=== PATIENT | female | born 1945 | race Caucasian/White ===

== ENCOUNTER 2019-03-30 20:18 | Observation (INO) ==
--- NOTE | 2019-03-30 20:27 | Emergency Department Note ---
Disposition Clinical Impression: Chest pain Qualifiers: Chest pain type: unspecified Qualified Code(s): R07.9 - Chest pain, unspecified Disposition: Admitted As Inpatient Condition: Undetermined Referrals: Darrel Avilez DO [Partnered Physician] - Forms: ED Satisfaction Letter Time of Disposition: 22:09 Chest Pain HPI - General Chief Complaint: ED Chest Pain Stated Complaint: chest pain Time Seen by Provider: 03/30/19 20:21 Source: patient, EMS Mode of arrival: EMS Limitations: no limitations Vital Signs Reviewed: Yes Nursing Notes Reviewed: Yes - History of Present Illness HPI Narrative: Patient is a 73 year old female with past medical history including hypertension, prior myocardial infarction status post 2 stent placements on Plavix, COPD, presenting with chief complaint of chest pain that started at 7 PM this evening. The patient states in the afternoon, she was mowing her lawn and felt very hot. She states after she just overall did not feel well. Around 7 PM, she states she was sitting going through receipts when she suddenly developed bilateral chest pain which he describes as severe pressure radiating into her back. She took one nitroglycerin without resolving. She took a second 5 minutes later and states the pain lasted a total of 7 minutes. She complains of some shortness of breath and nausea with the pain. She is chest pain-free at this time. She states this pain feels very similar to the pain she fell 2 years ago when she had her VT. She denies history of aneurysms. Severity scale (1-10): 0 - Related Data Home Medications Medication Instructions Recorded Confirmed Aspirin 81 mg PO QAM 07/12/15 10/19/18 Atorvastatin [Lipitor] 40 mg PO QAM 07/12/15 10/19/18 Solifenacin Succinate [Vesicare] 10 mg PO DAILY 03/30/19 03/30/19 Previous Rx's Medication Instructions Recorded Clopidogrel [Plavix] 75 mg PO DAILY #60 tablet 07/14/15 Metoprolol XL (24 HR) Succ [Toprol 25 mg PO DAILY #30 tab.er.24h 07/14/15 XL] Nitroglycerin 0.4 mg SL Q5MIN PRN #30 tab.subl 07/14/15 Allergies Allergy/AdvReac Type Severity Reaction Status Date / Time Sulfa (Sulfonamide AdvReac Severe severe Verified 02/16/18 07:02 Antibiotics) vomiting ivp dye Allergy Rash Uncoded 02/16/18 07:02 All systems ED: reviewed and negative except as stated. Review of Systems: As Per HPI Constitutional: Denies: fever, chills Cardiovascular: Reports: chest pain. Denies: palpitations Respiratory: Reports: dyspnea. Denies: cough Gastrointestinal: Reports: nausea. Denies: abdominal pain, vomiting Genitourinary: Denies: dysuria, hematuria Musculoskeletal: Reports: back pain Chest Pain PMH - Past Medical History Medical history: Reports: cancer, GERD, glaucoma, hyperlipidemia, hypertension, myocardial infarction, other Surgical history: Reports: appendectomy, other Psychiatric history: Reports: no psych history TURBINE ROOM ATTENDANT history: Reports: no TURBINE ROOM ATTENDANT history - Social History Smoking Status: Former smoker Alcohol use: Reports: none Drug use: Reports: none Physical Exam - General Limitations: no limitations General appearance: alert, in no apparent distress - Head Head exam: atraumatic, normocephalic - Eye Eye exam: Present: normal appearance, EOMI - ENT ENT exam: normal exam, mucous membranes moist - Neck Neck exam: Present: normal inspection, trachea midline - Chest Chest inspection: Present: normal inspection, symmetric chest wall rise - Respiratory Respiratory exam: Present: normal lung sounds bilaterally. Absent: respiratory distress, wheezes - Cardiovascular Cardiovascular exam: Present: regular rate, normal rhythm, normal heart sounds, other (bilateral radial pulses equal and palpable) - Abdominal Exam Abdominal exam: Present: soft, Non-Tender. Absent: distention - Extremities Exam Extremities exam: Present: normal capillary refill. Absent: pedal edema, calf tenderness - Back Exam Back exam: Present: normal inspection. Absent: tenderness - Neurological Exam Neurological exam: Present: alert, oriented X3 - Psychiatric Psychiatric exam: Present: normal affect, normal mood - Skin Skin exam: Present: warm, dry. Absent: diaphoresis, pallor Course Vital Signs Temperature 98.7 F 03/30/19 20:21 Pulse Rate 87 03/30/19 20:21 Respiratory Rate 18 03/30/19 20:21 Blood Pressure 117/87 03/30/19 20:21 O2 Sat by Pulse Oximetry 95 03/30/19 20:21 Temperature 98.7 F 03/30/19 20:21 Pulse Rate 86 03/30/19 21:55 Respiratory Rate 18 03/30/19 21:55 Blood Pressure 95/63 05/22/19 21:55 O2 Sat by Pulse Oximetry 96 03/30/19 21:55 Oxygen Delivery Oxygen Delivery Room Air Chest Pain - MDM Narrative Medical decision making narrative: Patient is presenting with chest pain that lasted for 7 minutes and similar to the chest pain she had 2 years ago prior to her heart attack. She has 2 stent placements and is on Plavix. She states she is chest pain-free at this time. Vitals are stable. She is nontoxic-appearing and not in acute distress. She received 2 sublingual nitroglycerin at home. We will obtain ACS workup and check troponin CBC and BMP, chest x-ray. EKG was obtained that shows sinus rhythm without acute ischemic changes. An aspirin will also be given. 21:10 Troponin is less than 0.03. CXR shows no acute cardiopulmonary process. She remains chest pain free at this time. The patient will be admitted for further evaluation of chest pain and ACS workup. Hospitalist paged for admission. 22:00 Discussed with Hospitalist, Dr. Jacobsen, who accepts admission. - Medical Records Medical records reviewed: Yes I reviewed the patient's medical records. - Lab Data Lab results reviewed: Yes I reviewed the patient's lab results. Result diagrams: 03/30/19 20:33 03/30/19 20:33 Lab Results 03/30/19 03/30/19 03/30/19 Range/Units 20:33 20:33 20:33 WBC 10.5 (4.3-11.1) K/mcL RBC 5.01 H (3.82-4.97) M/mcL Hgb 14.8 (11.5-15.4) g/dL Hct 43.5 (35.3-44.9) % MCV 86.8 (83.0-100.0) fL MCH 29.5 (28.0-33.3) pg MCHC 34.0 (31.6-35.5) g/dL RDW 12.5 (11.5-14.5) % Plt Count 253 (140-400) K/mcL MPV 10.5 (9.4-12.4) fL Immature Gran % 0.4 (0-4) % Seg Neutrophils % 60.3 % Lymphocytes % 26.9 % Monocytes % 10.5 % Eosinophils % 1.2 % Basophils % 0.7 % Neutrophils # 6.3 (1.6-8.9) K/mcL Lymphocytes # 2.8 (0.6-4.6) K/mcL Monocytes # 1.1 (0.0-1.3) K/mcL Eosinophils # 0.1 (0.0-0.6) K/mcL Basophils # 0.1 (0.0-0.2) K/mcL PT 11.3 (9.4-12.1) Seconds INR 1.0 APTT 27.8 (26.0-36.0) Seconds Sodium 140 (136-145) mEq/L Potassium 3.5 (3.5-5.1) mEq/L Chloride 103 (98-107) mEq/L Carbon Dioxide 24 (23-29) mEq/L BUN 31 H (8-23) mg/dL Creatinine 1.09 (0.60-1.20) mg/dL Est GFR ( Amer) 60 (> 60) Est GFR (Non-Af Amer) 49 L (> 60) BUN/Creatinine Ratio 28 H (6-26) Glucose 140 H (70-105) mg/dL Calculated Osmolality 299 (280-300) Calcium 10.5 H (8.6-10.3) mg/dL Troponin I < 0.03 (< 0.04) ng/mL - Radiology Data Radiology results reviewed: Yes I reviewed the patient's radiology results. Chest X-Ray 03/30/19 20:22 IMPRESSION: No acute findings. D/ / David Benito MD / David Benito MD Interpreting Provider: David Benito MD - EKG Data EKG attestation: Yes I reviewed and interpreted this EKG. EKG results narrative: EKG obtained at 2022 shows sinus rhythm with heart rate 94, GA interval 192, QTC 421, no ST elevation or depression. Minimal T-wave inversion in lead 3. Compared to old EKG on 10/19/2018 which at that time showed T-wave inversion in lead 3, no acute changes.
[2019-03-30 20:47] LABS: Basophils # 0.1 K/mcL (0.0-0.2); Basophils % 0.7 %; Eosinophils # 0.1 K/mcL (0.0-0.6); Eosinophils % 1.2 %; Hematocrit 43.5 % (35.3-44.9); Hemoglobin 14.8 g/dL (11.5-15.4); Immature Granulocytes % 0.4 % (0-4); Lymphocytes # 2.8 K/mcL (0.6-4.6); Lymphocytes % 26.9 %; Mean Corpuscular Hemoglobin 29.5 pg (28.0-33.3); Mean Corpuscular Volume 86.8 fL (83.0-100.0); Mean Platelet Volume 10.5 fL (9.4-12.4); Monocytes # 1.1 K/mcL (0.0-1.3); Monocytes % 10.5 %; Neutrophils # 6.3 K/mcL (1.6-8.9); Platelet Count 253 K/mcL (140-400); Red Blood Count 5.01 M/mcL (3.82-4.97); Red Cell Distribution Width 12.5 % (11.5-14.5); Segmented Neutrophils % 60.3 %
[2019-03-30 20:52] LABS: Prothrombin Time 11.3 Seconds (9.4-12.1)
[2019-03-30] MEDS ORDERED: Aspirin 81 MG TAB.CHEW PO STA (20:52)
[2019-03-30 20:55] LABS: Activated Partial Thrombo Time 27.8 Seconds (26.0-36.0)
[2019-03-30 21:07] LABS: BUN/Creatinine Ratio 28 (6-26); Blood Urea Nitrogen 31 mg/dL (8-23); Calcium 10.5 mg/dL (8.6-10.3); Carbon Dioxide 24 mEq/L (23-29); Chloride 103 mEq/L (98-107); Glucose 140 mg/dL (70-105); Osmolality,Calculated 299 (280-300); Potassium 3.5 mEq/L (3.5-5.1); Sodium 140 mEq/L (136-145); eGFR For Non-African Americans 49 (> 60)
[2019-03-30 21:08] LABS: Troponin I < 0.03 ng/mL (< 0.04)
--- NOTE | 2019-03-30 21:16 | Emergency Department Note ---
Disposition Clinical Impression: Chest pain Qualifiers: Chest pain type: unspecified Qualified Code(s): R07.9 - Chest pain, unspecified Disposition: Admitted As Inpatient Condition: Good Time of Disposition: 22:30 General Adult HPI - General Chief complaint: ED Chest Pain Stated complaint: chest pain Time Seen by Provider: 03/30/19 20:21 Source: patient, EMS Mode of arrival: EMS Limitations: no limitations - History of Present Illness Pain Scale: 0 - Related Data Home Medications Medication Instructions Recorded Confirmed Aspirin 81 mg PO QAM 07/12/15 03/30/19 Atorvastatin [Lipitor] 40 mg PO QAM 07/12/15 03/30/19 Solifenacin Succinate [Vesicare] 10 mg PO DAILY 03/30/19 03/30/19 Previous Rx's Medication Instructions Recorded Clopidogrel [Plavix] 75 mg PO DAILY #60 tablet 07/14/15 Metoprolol XL (24 HR) Succ [Toprol 25 mg PO DAILY #30 tab.er.24h 07/14/15 XL] Nitroglycerin 0.4 mg SL Q5MIN PRN #30 tab.subl 07/14/15 Allergies Allergy/AdvReac Type Severity Reaction Status Date / Time Sulfa (Sulfonamide AdvReac Severe severe Verified 02/16/18 07:02 Antibiotics) vomiting ivp dye Allergy Rash Uncoded 02/16/18 07:02 Constitutional: Denies: fever, chills Cardiovascular: Reports: chest pain. Denies: palpitations Respiratory: Reports: dyspnea. Denies: cough Gastrointestinal: Reports: nausea. Denies: abdominal pain, vomiting Genitourinary: Denies: dysuria, hematuria Musculoskeletal: Reports: back pain Past Medical History - Past Medical History Medical history: Reports: cancer, GERD, glaucoma, hyperlipidemia, hypertension, myocardial infarction, other Surgical history: Reports: appendectomy, other Psychiatric history: Reports: no psych history TRAFFIC WORKFORCE REPRESENTATIVE history: Reports: no TRAFFIC WORKFORCE REPRESENTATIVE history - Social History Smoking Status: Former smoker Smokeless Tobacco Status: No Alcohol use: Reports: none Drug use: Reports: none Physical Exam - General Limitations: no limitations General appearance: alert, in no apparent distress Course Vital Signs Temperature 98.7 F 03/30/19 20:21 Pulse Rate 87 03/30/19 20:21 Respiratory Rate 18 03/30/19 20:21 Blood Pressure 117/87 03/30/19 20:21 O2 Sat by Pulse Oximetry 95 03/30/19 20:21 Temperature 98.7 F 03/30/19 20:21 Pulse Rate 86 03/30/19 21:55 Respiratory Rate 18 03/30/19 21:55 Blood Pressure 95/63 03/30/19 21:55 O2 Sat by Pulse Oximetry 96 03/30/19 21:55 Oxygen Delivery Oxygen Delivery Room Air Medical Decision Making - Lab Data Result diagrams: 03/30/19 20:33 03/30/19 20:33 Lab Results 03/30/19 03/30/19 03/30/19 Range/Units 20:33 20:33 20:33 WBC 10.5 (4.3-11.1) K/mcL RBC 5.01 H (3.82-4.97) M/mcL Hgb 14.8 (11.5-15.4) g/dL Hct 43.5 (35.3-44.9) % MCV 86.8 (83.0-100.0) fL MCH 29.5 (28.0-33.3) pg MCHC 34.0 (31.6-35.5) g/dL RDW 12.5 (11.5-14.5) % Plt Count 253 (140-400) K/mcL MPV 10.5 (9.4-12.4) fL Immature Gran % 0.4 (0-4) % Seg Neutrophils % 60.3 % Lymphocytes % 26.9 % Monocytes % 10.5 % Eosinophils % 1.2 % Basophils % 0.7 % Neutrophils # 6.3 (1.6-8.9) K/mcL Lymphocytes # 2.8 (0.6-4.6) K/mcL Monocytes # 1.1 (0.0-1.3) K/mcL Eosinophils # 0.1 (0.0-0.6) K/mcL Basophils # 0.1 (0.0-0.2) K/mcL PT 11.3 (9.4-12.1) Seconds INR 1.0 APTT 27.8 (26.0-36.0) Seconds Sodium 140 (136-145) mEq/L Potassium 3.5 (3.5-5.1) mEq/L Chloride 103 (98-107) mEq/L Carbon Dioxide 24 (23-29) mEq/L BUN 31 H (8-23) mg/dL Creatinine 1.09 (0.60-1.20) mg/dL Est GFR ( Amer) 60 (> 60) Est GFR (Non-Af Amer) 49 L (> 60) BUN/Creatinine Ratio 28 H (6-26) Glucose 140 H (70-105) mg/dL Calculated Osmolality 299 (280-300) Calcium 10.5 H (8.6-10.3) mg/dL Troponin I < 0.03 (< 0.04) ng/mL Attestation Statement - Attestation Attestation: I examined this patient and my medical decision-making was reviewed with the Resident Physician. I agree with the documented findings, disposition and treatment plan as described except to the extent set forth below. 73 year old female presents to the eD with complaints of chest pain that occured after mowing the lawn and when she was at rest. She has two known stent and another vessel that is 75% blocked without stents. Anthony otherwise is chest pain free now, with a negative troponin, and non ischemic EKg. Anthony has been given ASA for therapy. Admit to meicine, moderate heart score
[2019-03-30] MEDS ORDERED: Naloxone 0.4 MG/ML INJ IVP PRN (23:03)
[2019-03-30] MEDS ORDERED: Nitroglycerin 0.4 MG TAB.SUBL SL PRN (23:06)
--- NOTE | 2019-03-30 23:19 | Internal Med History&Physical ---
Date of Encounter: 03/30/19 Time of Encounter: 22:15 Internal Medicine - H&P: HPI Chief complaint: CP Admitted From: Emergency Dept Plans for Post Hospital Care: Home History of present illness: Ms. Velazquez is a 73 year old female w/PMH of previous myocardial infarction in 07/2015 with stent placement 2, skin cancer of the face which is resolved, GERD, glaucoma, HLD, HTN, and overactive bladder presents from the ED with chief complaint of chest pain that began at approximately 19:00 this evening after the pt. had cut her grass using a push mower. Pt. reports she became very overheated and stopped. She states she took a bath and while resting, she began having CP that presented as pressure across her chest with radiation to her back, left jaw, and left arm which lasted approximately 20 minutes. Pt. reports taking two SL nitro which relieved her sx. Associated sx: Nausea and diaphoresis. Alleviating factor: SL nitro. Aggravating factor: Exertion. Patient reports pain is similar to her previous IN. Patient states she takes care of her who suffers from rt-sided weakness/paralysis. Pt. reports she is followed by Dr. Gisel Keith for Cardiology. Patient denies recent illness, fever, chills, vomiting, shortness of breath, changes in vision, headache, unusual bleeding, abdominal pain, diarrhea, constipation, chest congestion, cough, dizziness, lightheadedness, numbness, tingling, pre-syncope, or syncope. Past Med Surg Social Fam HX - Past Medical History Source: patient, old records reviewed, obtained from family Medical history: cancer (Skin cancer of the face (Resolved)), GERD, glaucoma, hyperlipidemia, hypertension, myocardial infarction (07/2015 w/stents x2), other Additional medical history: Overactive bladder Psychiatric history: no psych history - Past Surgical History Surgical History: appendectomy, other (Colon surgery) Additional surgical history: laparoscopic signoid colectomy with 39 EEA coloproctostomy (Dr Jimenez) 2012. BCC of face 2010. [facility] with stents 07/2015. PNE 01/2018 - Social History Smoking Status: Former smoker Packs per day: 1-1.5 PPD - Reports quitting in 2012 Smokeless Tobacco Status: No Alcohol use: none Drug use: none Current living situation: Home, With Family Activity Level: Independent ambulation, Very active Recent Out of Country Travel Within the Last 8 Weeks: No Exposure or Possible Exposure to Illness During Travel: No - Family History Mother Adopted: No Race: Family Member Ethnicity: Non- Living Status: Age at : 82 Cause of : IN Hx Family Cardiac Disorders: Yes (IN, CVA, HTN) Hx Family Neurologic Disorders: Yes (CVA) Father Adopted: No Race: Family Member Ethnicity: Non- Living Status: Age at : 47 Cause of : IN Hx Family Cardiac Disorders: Yes (IN @ 47, HLD) Sister Race: Family Member Ethnicity: Non- Living Status: Still Living Hx Family Cardiac Disorders: Yes (Heart murmur) Hx Family Endocrine Disorder: Yes (DM) Brother Race: Family Member Ethnicity: Non- Living Status: Still Living Hx Family GI Disorders: Yes (Diverticulosis) Hx Family Endocrine Disorder: Yes (DM) Daughter Race: Family Member Ethnicity: Non- Living Status: Still Living Hx Family Cardiac Disorders: Yes (HLD, HTN, Heart murmur) Internal Medicine - H&P: Meds Aspirin 81 mg PO QAM 07/12/15 [History] Atorvastatin [Lipitor] 40 mg PO QAM 07/12/15 [History] Clopidogrel [Plavix] 75 mg PO DAILY #60 tablet 07/14/15 [Rx] Metoprolol XL (24 HR) Succ [Toprol XL] 25 mg PO DAILY #30 tab.er.24h 07/14/15 [Rx] Nitroglycerin 0.4 mg SL Q5MIN PRN #30 tab.subl 07/14/15 [Rx] Solifenacin Succinate [Vesicare] 10 mg PO DAILY 03/30/19 [History] Allergy/AdvReac Type Severity Reaction Status Date / Time Sulfa (Sulfonamide AdvReac Severe severe Verified 02/16/18 07:02 Antibiotics) vomiting ivp dye Allergy Rash Uncoded 02/16/18 07:02 All Systems PM: A 10-system review of systems was performed and is negative for pertinent findings except as documented above in the HPI. - Constitutional Constitutional: as per HPI, no chills, no fever(s), no night sweats - EENT Eyes: no change in vision, no discharge, no pain, no photophobia Ears: no ear discharge, no ear pain, no tinnitus Nose, mouth and throat: no dysphagia, no nasal discharge, no neck pain, no sore throat - Breasts Breasts: as per HPI - Cardiovascular Cardiovascular ROS IM: as per HPI, chest pain, no diaphoresis, no dyspnea, no lightheadedness, no palpitations, no syncope - Respiratory Respiratory: as per HPI, no cough, no dyspnea, no wheezing, no excessive phlegm production - Gastrointestinal Gastrointestinal: as per HPI, heartburn, nausea, no abdominal pain, no diarrhea, no hematemesis, no hematochezia, no melena, no vomiting - Genitourinary Genitourinary: as per HPI, urinary frequency, no change in urinary stream, no d ysuria, no flank pain, no hematuria Menstruation: as per HPI - Musculoskeletal Musculoskeletal ROS IM: no numbness, no tingling - Integumentary Integumentary IM: no rash, no unusual bruising - Neurological Neurological ROS: as per HPI, no confusion, no convulsions, no focal weakness, no numbness, no tingling, no tremor(s) - Psychiatric Psychiatric: as per HPI - Endocrine Endocrine IM: as per HPI - Hematologic/Lymphatic Hematologic/Lymphatic: no easy bruising - Allergic/Immunologic Allergic/Immunologic: as per HPI - Constitutional Vitals: Temp Pulse Resp BP Pulse Ox 98.7 F 86 18 95/63 96 03/30/19 20:21 03/30/19 21:55 03/30/19 21:55 03/30/19 21:55 03/30/19 21:55 General appearance: Present: cooperative, A&O X 3, pleasant, no acute distress, obese, answers questions appropriately Exam: Pt. examined at bedside. Pt. resting in bed and reports no current CP, SOB, or nausea. Reports CP earlier felt like previous IN. States SL nitro alleviated her sx. Denies any other sx or complaints on examination. VS: 98.0F temp, HR 86, RR 18, BP 95/63, SPO2 96% on room air. - Head Head exam: Present: atraumatic, normocephalic - Eye Eye exam: Present: PERRL, conjuntiva pink, sclera anicteric Pupils: Present: PERRL - ENT ENT exam: Present: normal exam - Neck Neck exam general surgery: Present: normal inspection, supple, trachea midline. Absent: lymphadenopathy - Respiratory Respiratory exam: Present: CTAB. Absent: accessory muscle use, rales, rhonchi, wheezes - Cardiovascular Cardiovascular exam: Present: RRR, +S1, +S2. Absent: diastolic murmur, gallop, rubs, systolic murmur - GI/Abdominal GI/Abdominal exam: Present: normal bowel sounds, soft, no peritoneal signs. Absent: distended, tenderness - Rectal Rectal exam: Present: deferred - Additional comments: exam deferred. - Extremities Exam Extremities exam: Present: warm, radial pulses palpable and symmetrical. Absent: calf tenderness, cyanotic, pedal edema - Back Exam Back exam: Present: normal inspection - Neurological Exam Neurological exam: Present: alert, CN II-XII intact, oriented X3, no focal deficits. Absent: pronater drift, facial droop, speech deficit - Psychiatric Psychiatric exam: Present: normal affect, normal mood - Skin Skin exam: Present: dry, intact Internal Med - H&P Results - Labs CBC & Chem 7: 03/30/19 20:33 03/30/19 20:33 Labs: Short CBC 03/30/19 Range/Units 20:33 WBC 10.5 (4.3-11.1) K/mcL Hgb 14.8 (11.5-15.4) g/dL Hct 43.5 (35.3-44.9) % Plt Count 253 (140-400) K/mcL Neutrophils # 6.3 (1.6-8.9) K/mcL BMP 03/30/19 20:33 Sodium 140 Potassium 3.5 Chloride 103 Carbon Dioxide 24 BUN 31 H Creatinine 1.09 Glucose 140 H Calcium 10.5 H Cardiac Enzymes 03/30/19 Range/Units 20:33 Troponin I < 0.03 (< 0.04) ng/mL - EKG Data EKG shows normal: sinus rhythm - EKG Data Prior EKG available for review: yes EKG comments: 03/30/19 23:26 EKG dated 10/19/18 shows sinus rhythm. EKG dated 03/30/19 shows sinus rhythm with minimal ST depression in inferior leads. - Impressions ITS Impressions Chest X-Ray 03/30/19 20:22 IMPRESSION: No acute findings. D/ / David Benito MD / David Benito MD Interpreting Provider: David Benito MD - Diagnostic Studies Chest x-ray Additional comments: Impressions Chest X-Ray 03/30/19 20:22 IMPRESSION: No acute findings. D/ / David Benito MD / David Benito MD Interpreting Provider: David Benito MD - Assessment and Plan (1) Chest pain Current Visit: Yes Status: Acute Assessment and plan: Acute CP that began at approximately 19:00 this evening after the pt. had cut her grass using a push mower. Pt. reports she became very overheated and stopped. She states she took a bath and while resting, she began having CP that presented as pressure across her chest with radiation to her back, left jaw, and left arm which lasted approximately 20 minutes. Pt. reports taking two SL nitro which relieved her sx. Pt. states CP is similar to previous IN. Last cardiac w/ u on 11/08/18 w/Echocardiogram that showed LVEF 75% with hyperdynamic LV, normal LV chamber size and wall thickness and systolic function, mild left ventricular diastolic dysfunction, normal right ventricular structure and function, mild tricuspid regurgitation, and no pulmonary hypertension. Nuclear stress test on 11/08/18 showed no ischemia or infarct on perfusion study, normal perfusion study, stress LVEF greater than 70%, pharmacologic stress ECG nondiagnostic for ischemia, and rare PVCs during recovery. Initial troponin <0.03. Trending. ASA. 80 mg Lipitor once. SL nitro PRN. Limited Echocardiogram ordered. Consider Cardiology consult if troponins and/or echocardiogram results abnormal. Pt. is high risk for cardiac event and further morbidity d/t current CP that began at rest, previous IN resulting in stents x2, familial hx of CAD/IN/Father dying of IN @ 47yo, former smoker; and current risk factors of HLD, HTN, and obesity. Observation. Qualifiers: Chest pain type: other chest pain Qualified Code(s): R07.89 - Other chest pain; R07.8 - Other chest pain (2) Nausea Current Visit: Yes Status: Acute Assessment and plan: Acute nausea accompanying CP sx. Phenergan 12.5 mg IVP Q6HR PRN for N/V. IVP Protonix 40 mg daily d/t GERD. (3) CAD (coronary artery disease) Current Visit: Yes Status: Chronic Assessment and plan: Hx of chronic CAD w/previous IN in 2014 and stent placement x2. Hx of HTN, HLD, former smoker (1-1.5 PPD), familial hx of CAD, obesity. ASA daily. Continue pts. HLD and HTN medications. Encourage lifestyle modifications. Continuous cardiac telemetry. Qualifiers: Coronary Disease-Associated Artery/Lesion type: [place] artery [place] vs. transplanted heart: [place] heart Associated angina: angina presence unspecified Qualified Code(s): I25.10 - Atherosclerotic heart disease of [place] coronary artery without angina pectoris (4) HLD (hyperlipidemia) Current Visit: Yes Status: Chronic Assessment and plan: Hx of chronic HLD. Lipid panel in a.m. labs. 80 mg. Lipitor once d/t CP. Continue 40 mg daily tomorrow. Qualifiers: Hyperlipidemia type: pure hypercholesterolemia Qualified Code(s): E78.00 - Pure hypercholesterolemia, unspecified; E78.0 - Pure hypercholesterolemia (5) HTN (hypertension) Current Visit: Yes Status: Chronic Assessment and plan: Hx of chronic HTN. Monitor pt. and VS. Continue pts. Metoprolol when pts. BP improves. Currently hypotensive. Monitor. Qualifiers: Hypertension type: essential hypertension Qualified Code(s): I10 - Essential (primary) hypertension (6) GERD (gastroesophageal reflux disease) Current Visit: Yes Status: Chronic Assessment and plan: Hx of chronic GERD which pt. reports is poorly controlled. 40 mg Protonix IVP daily. Qualifiers: Esophagitis presence: esophagitis presence not specified Qualified Code(s): K21.9 - Gastro-esophageal reflux disease without esophagitis (7) Overactive bladder Current Visit: Yes Status: Chronic Assessment and plan: Hx of chronic overactive bladder. Continue pts. Vesicare. (8) Previous myocardial infarction older than 8 weeks Current Visit: Yes Status: Resolved Assessment and plan: Hx of previous IN in 2014 w/stents x2. Continuous cardiac telemetry. Continue pts. Plavix. ASA daily. Continue pts. HTN and HLD medications. (9) DVT prophylaxis Current Visit: Yes Status: Acute Assessment and plan: Heparin 5,000 units SQ Q8HR for DVT prophylaxis. Monitor pt. for signs of bleeding. - Time Spent With Patient Total time spent is greater than 50% in coordination of care (as documented) at patient's floor/unit and/or counseling patient: Greater than 35 minutes
[2019-03-30] MEDS ORDERED: 0.9 % Sodium Chloride 1,000 ML ONE (23:33)
[2019-03-31] MEDS ORDERED: Acetaminophen 325 MG TABLET PO PRN (00:33)
[2019-03-31] MEDS ORDERED: *HR* Promethazine 25 MG/ML VIAL IVP PRN (00:34)
[2019-03-31] MEDS ORDERED: traMADol 50 MG TABLET PO PRN (00:34)
[2019-03-31] MEDS: Pantoprazole 40 MG VIAL IVP SCH ×2 (00:42→08:41)
[2019-03-31] MEDS: 0.9 % Sodium Chloride 1,000 ML IVC SCH ×2 (00:42→21:00)
[2019-03-31 02:38] LABS: Hemoglobin 14.2 g/dL (11.5-15.4); Mean Corpuscular HGB Conc 33.8 g/dL (31.6-35.5); Mean Corpuscular Hemoglobin 29.5 pg (28.0-33.3); Mean Corpuscular Volume 87.1 fL (83.0-100.0); Mean Platelet Volume 10.4 fL (9.4-12.4); Platelet Count 223 K/mcL (140-400); Red Blood Count 4.82 M/mcL (3.82-4.97); Red Cell Distribution Width 12.6 % (11.5-14.5)
[2019-03-31 02:41] LABS: Estimated Average Glucose 123 mg/dl; Hemoglobin A1C 5.9 %
[2019-03-31 03:00] LABS: BUN/Creatinine Ratio 39 (6-26); Blood Urea Nitrogen 33 mg/dL (8-23); Calcium 9.7 mg/dL (8.6-10.3); Carbon Dioxide 23 mEq/L (23-29); Chloride 107 mEq/L (98-107); Cholesterol 127 mg/dL (< 200); Glucose 112 mg/dL (70-105); HDL Cholesterol 42 mg/dL (40-59); LDL Cholesterol,Calculated 60 mg/dL (0-99); Magnesium 1.9 mg/dL (1.6-2.6); Osmolality,Calculated 296 (280-300); Potassium 3.4 mEq/L (3.5-5.1); Sodium 139 mEq/L (136-145); Triglycerides 123 mg/dL (< 150); eGFR For Non-African Americans > 60 (> 60)
[2019-03-31] MEDS: *HR* Heparin 5,000 UNIT/ML VIAL SQ SCH ×3 (05:30→20:56)
[2019-03-31] MEDS ORDERED: Potassium Chloride Elixir 20 MEQ/15 ML UDC PO ONE (07:02)
[2019-03-31] MEDS: Aspirin 81 MG TAB.CHEW PO SCH (08:41)
[2019-03-31] MEDS ORDERED: Regadenoson 0.4 MG/5 ML SYRINGE IVP ONE (08:46)
[2019-03-31] MEDS ORDERED: Perflutren Lipid Microsphere 1.3 ML in 0.9 % Sodium Chloride 8.7 ML IVP ONE (09:09)
--- NOTE | 2019-03-31 09:28 | Electrocardiograph Report ---
[address] [address] Test Date: 2019-03-30 Pat Name: Tamra Velazquez Department: EXAM15 Room: 3B16 Gender: F Qa Architect: : 1945 Requested By: Priyanka Steven Order Number: [id number] Reading MD: Lilli Hobbs Measurements Intervals [place] Rate: 94 P: 52 NE: 192 QRS: 47 QRSD: 77 T: 4 QT: 336 QTc: 421 Interpretive Statements Sinus rhythm Electronically Signed On 03-31-2019 9:27:27 EDT by Lilli Hobbs
--- NOTE | 2019-03-31 13:21 | Internal Med Progress Note ---
Hospitalist Progress Note - Encounter Date of Encounter: 03/31/19 Time of Encounter: 13:16 - Subjective Interval History: Patient was seen and examined at bedside, currently denies any pain or discomfort. I discussed treatment plan with the patient that includes adding anti anginal per cardiology recommendations and monitoring Patient agrees to plan - Exam Vitals: Temp Pulse Resp BP Pulse Ox 97.6 F 73 73 136/82 91 03/31/19 11:59 03/31/19 11:59 03/31/19 11:59 03/31/19 11:59 03/31/19 11:59 Exam: Skin: Free of rash and discoloration. Eyes: Sclera is white. There is no discharge from eyes. ENMT: Oral/pharyngeal mucosa is normal in appearance. There is no discharge from nose or ears. Respiratory: Normal breath sounds with no crackles and wheezes bilaterally. CV: Heart is regular with no gallop or murmur. GI: Abdomen is flat and soft with no palpable mass or visceromegaly. : There is no tenderness in patient's flanks bilaterally. Neuro exam: He has good strength in upper and lower extremities. He has normal eye movements. Psychiatric: He has normal affect. His thought process is appropriate to the situation. - Assessment and Plan (1) Chest pain Current Visit: Yes Status: Acute Assessment and Plan: Troponins have been negative x3 EKG with no ST T wave abnormality limited echo Impressions: LVEF 65-70%. Normal LV chamber size, wall thickness and systolic function. No segmental dysfunction. patient has been CP free overnight Reviewed the case with Dr Cano recommend adding low dose Imdur or low BB dt soft BP - patient can follow up with cardiology as outpatient and return if CP returns Patient is on metoprolol XL 25 mg at home decreased down to 12.5mg added Imdur 30 mg daily- will monitor overnight and encourage patient to ambulate (2) GERD (gastroesophageal reflux disease) Current Visit: Yes Status: Chronic Assessment and Plan: Hx of chronic GERD which pt. reports is poorly controlled. 40 mg Protonix IVP daily. (3) Overactive bladder Current Visit: Yes Status: Chronic Assessment and Plan: Hx of chronic overactive bladder. Continue pts. Vesicare. (4) HLD (hyperlipidemia) Current Visit: Yes Status: Chronic Assessment and Plan: Hx of chronic HLD. Lipid panel in a.m. labs. 80 mg. Lipitor once d/t CP. Continue 40 mg daily tomorrow. (5) HTN (hypertension) Current Visit: Yes Status: Chronic Assessment and Plan: Hx of chronic HTN. cont home medications . (6) Previous myocardial infarction older than 8 weeks Current Visit: Yes Status: Resolved Assessment and Plan: Hx of previous [place] in 2014 w/stents x2. Continuous cardiac telemetry. Continue pts. Plavix. ASA daily. Continue pts. HTN and HLD medications. (7) Nausea Current Visit: Yes Status: Acute Assessment and Plan: Acute nausea accompanying CP sx. Phenergan 12.5 mg IVP Q6HR PRN for N/V. IVP Protonix 40 mg daily d/t GERD. (8) CAD (coronary artery disease) Current Visit: Yes Status: Chronic Assessment and Plan: Hx of chronic CAD w/previous [place] in 2014 and stent placement x2. Hx of HTN, HLD, former smoker (1-1.5 PPD), familial hx of CAD, obesity. ASA daily. Continue pts. HLD and HTN medications. Encourage lifestyle modifications. Continuous cardiac telemetry. (9) DVT prophylaxis Current Visit: Yes Status: Acute Assessment and Plan: Heparin 5,000 units SQ Q8HR for DVT prophylaxis. Monitor pt. for signs of bleeding. - Time Spent with Patient Total time spent is greater than 50% in coordination of care (as documented) at patient's floor/unit and/or counseling patient: Internal Medicine: Result - Labs CBC & Chem 7: 03/31/19 02:27 03/31/19 02:27 Labs: Short CBC 03/30/19 03/31/19 Range/Units 20:33 02:27 WBC 10.5 7.4 (4.3-11.1) K/mcL Hgb 14.8 14.2 (11.5-15.4) g/dL Hct 43.5 42.0 (35.3-44.9) % Plt Count 253 223 (140-400) K/mcL Neutrophils # 6.3 (1.6-8.9) K/mcL BMP 03/30/19 03/31/19 20:33 02:27 Sodium 140 139 Potassium 3.5 3.4 L Chloride 103 107 Carbon Dioxide 24 23 BUN 31 H 33 H Creatinine 1.09 0.85 Glucose 140 H 112 H Calcium 10.5 H 9.7 Cardiac Enzymes 03/30/19 03/31/19 03/31/19 Range/Units 20:33 02:27 12:01 Troponin I < 0.03 < 0.03 < 0.03 (< 0.04) ng/mL - ABG Interpretation ABG results: PT/INR, D-dimer PT 11.3 Seconds (9.4-12.1) 03/30/19 20:33 - Impressions Impressions Chest X-Ray 03/30/19 20:22 IMPRESSION: No acute findings. D/ / David Benito MD / David Benito MD Interpreting Provider: David Benito MD Echocardiogram Limited Views 03/31/19 22:15 Impressions: LVEF 65-70%. Normal LV chamber size, wall thickness and systolic function. No segmental dysfunction. Left Ventricular Wall Motion: Rest Echo Findings All wall segments showed normal motion. Findings: Study Quality * Technically adequate exam. ECG Findings * Normal sinus rhythm. Left Ventricle * LVEF 65-70%. * Normal LV chamber size, wall thickness and function. * No segmental dysfunction. Pericardium * The pericardium appears normal. Consult Discharge Plan - Plan Referrals: Darrel Avilez DO [Primary Care Provider] - 04/12/19 9:30 am () (1) Chest pain Qualifiers: Chest pain type: other chest pain Qualified Code(s): R07.89 - Other chest pain; R07.8 - Other chest pain (2) GERD (gastroesophageal reflux disease) Qualifiers: Esophagitis presence: esophagitis presence not specified Qualified Code(s): K21.9 - Gastro-esophageal reflux disease without esophagitis (4) HLD (hyperlipidemia) Qualifiers: Hyperlipidemia type: pure hypercholesterolemia Qualified Code(s): E78.00 - Pure hypercholesterolemia, unspecified; E78.0 - Pure hypercholesterolemia (5) HTN (hypertension) Qualifiers: Hypertension type: essential hypertension Qualified Code(s): I10 - Essential (primary) hypertension (8) CAD (coronary artery disease) Qualifiers: Coronary Disease-Associated Artery/Lesion type: [place] artery [place] vs. [place] spl[place] heart: [place] heart Associated angina: angina presence unspecified Qualified Code(s): I25.10 - Atherosclerotic heart disease of [place] coronary artery without angina pectoris
[2019-03-31] MEDS: Isosorbide MONOnitrate (24 HR) 30 MG TAB.ER.24H PO SCH (16:15)
[2019-03-31] MEDS: Metoprolol XL (24 HR) Succ 25 MG TAB.ER.24H PO SCH (16:15)
[2019-04-01] MEDS: *HR* Heparin 5,000 UNIT/ML VIAL SQ SCH ×2 (05:08→13:25)
[2019-04-01 06:22] LABS: Hematocrit 38.7 % (35.3-44.9); Hemoglobin 12.8 g/dL (11.5-15.4); Mean Corpuscular HGB Conc 33.1 g/dL (31.6-35.5); Mean Corpuscular Hemoglobin 29.4 pg (28.0-33.3); Mean Platelet Volume 10.8 fL (9.4-12.4); Platelet Count 207 K/mcL (140-400); Red Blood Count 4.35 M/mcL (3.82-4.97); Red Cell Distribution Width 12.5 % (11.5-14.5)
[2019-04-01 06:40] LABS: BUN/Creatinine Ratio 31 (6-26); Blood Urea Nitrogen 27 mg/dL (8-23); Calcium 9.2 mg/dL (8.6-10.3); Carbon Dioxide 22 mEq/L (23-29); Chloride 108 mEq/L (98-107); Glucose 100 mg/dL (70-105); Osmolality,Calculated 295 (280-300); Potassium 3.5 mEq/L (3.5-5.1); Sodium 140 mEq/L (136-145); eGFR For Non-African Americans > 60 (> 60)
[2019-04-01] MEDS: Pantoprazole 40 MG VIAL IVP SCH (08:44)
[2019-04-01] MEDS: Aspirin 81 MG TAB.CHEW PO SCH (08:44)
[2019-04-01] MEDS: Metoprolol XL (24 HR) Succ 25 MG TAB.ER.24H PO SCH (08:44)
[2019-04-01] MEDS: Isosorbide MONOnitrate (24 HR) 30 MG TAB.ER.24H PO SCH (08:44)
--- NOTE | 2019-04-01 14:17 | Cardiology Consult Note ---
<Renee Gill - Last Filed: 04/01/19 14:11> Date of Encounter: 04/01/19 Time of Encounter: 13:30 Assessment and Plan (1) Chest pain Current Visit: Yes Status: Chronic Atypical chest pain symptoms. Troponin negative, ECG without ischemic changes Recent negative stress test 10/2018. TTE this admission shows preserved LVEF with normal wall motion. Imdur added, however patient had headache, will change to Ranexa 500 mg BID. Continue asa, statin, BB and plavix. If symptoms continue in the outpatient setting may need to consider LHC. Recommend close outpatient follow-up with Dr. Keith. No further inpatient recommendations. Qualifiers: Chest pain type: precordial pain Qualified Code(s): R07.2 - Precordial pain Discussion w patient/family: The assessment and plan as outlined above was discussed with the patient and/or family members who expressed understanding and agreement. All questions were answered. Thank you for involving us in the care of your patient. Please call with any questions. The patient will be discussed and reviewed with Dr. Hobbs; changes to be made accordingly. History of Present Illness Consult date: 04/01/19 Requesting physician: Sandra Shaw Consult reason: chest pain Chief complaint: chest pain History of present illness: Ms. Velazquez is a 73 year old female with PMHx significant of CAD s/p CPI, HTN, and HLD who presented to the ED after an episode of chest discomfort yesterday. She reports she push mowed the lawn yesterday, 2 hours later she developed non- radiating chest discomfort; pain lasted for several minutes so she took NTG tabs which resolved chest discomfort. She reports she may have overheated. Of note, daughter assisted with HPI as patient is very drowsy s/p phenergan administration earlier today. Upon arrival to the ED, ECG demonstrated NSR without ischemic changes. Troponin was negative. Recent CV testing: Stress 10/2018 Impression: No ischemia or infarct on perfusion study. Normal perfusion study. Stress LVEF >70%. Pharmacologic stress ECG non-diagnostic for ischemia. Rare PVCs during recovery. Echo 10/2018 Impressions: LVEF 75%, hyperdynamic LV. Normal LV chamber size, wall thickness and systolic function. Mild left ventricular diastolic dysfunction. Normal right ventricular structure and function. Mild tricuspid regurgitation. No pulmonary hypertension Cardiac catheterization 07/13/15: Triple vessel coronary artery disease.The left ventricle is normal and has normal contractility EF 65%Patient had successful PTCA/Drug-Eluting Stent placement in the proximal Circ Patient had successful PTCA/Drug-Eluting Stent placement in the mid Circ. * Left Main Coronary Artery The LMCA is angiographically free of disease. * Left Anterior Descending There is a 30% stenosis in the Proximal LAD. There is a 95% stenosis in the 1st Diagonal which is a small vessel. * Circumflex There is a 14 mm long, 99% stenosis in the Proximal Circumflex. The lesion has no thrombus present and has severe calcification noted. An intervention was performed on the Proximal Circumflex with a final stenosis of 0%. There were no lesion complications. The final DEBBIE flow was 3. There is a 10 mm long, 85% stenosis in the Mid Circumflex. The lesion has no thrombus present and has severe calcification noted. An intervention was performed on the Mid Circumflex with a final stenosis of 0%. There were no lesion complications. The final DEBBIE flow was 3. * Right Coronary Artery There is a 30% stenosis in the Proximal RCA. There is a 50% stenosis in the Mid RCA. There is a 80% stenosis in the Distal RCA. 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 BCC of face 2010. LHC with stents 07/2015. PNE 01/2018 - Social History Smoking Status: Former smoker Packs per day: 1-1.5 PPD - Reports quitting in 2012 Smokeless Tobacco Status: No Alcohol use: none Drug use: none - Family History Sister Race: Family Member Ethnicity: Non- Living Status: Still Living Hx Family Cardiac Disorders: Yes (Heart murmur) Hx Family Endocrine Disorder: Yes (DM) Brother Race: Family Member Ethnicity: Non- Living Status: Still Living Hx Family GI Disorders: Yes (Diverticulosis) Hx Family Endocrine Disorder: Yes (DM) Daughter Race: Family Member Ethnicity: Non- Living Status: Still Living Hx Family Cardiac Disorders: Yes (HLD, HTN, Heart murmur) Mother Adopted: No Race: Family Member Ethnicity: Non- Living Status: Age at : 82 Cause of : MS Hx Family Cardiac Disorders: Yes (MS, CVA, HTN) Hx Family Respiratory Disorders: Yes Hx Family Neurologic Disorders: Yes (CVA) Father Adopted: No Race: Family Member Ethnicity: Non- Living Status: Age at : 47 Cause of : MS Hx Family Cardiac Disorders: Yes (MS @ 47, HLD) Hx Family Respiratory Disorders: No Hx Family Cancer: Yes Medications and Allergies Aspirin 81 mg PO QAM 07/12/15 [History] Solifenacin Succinate [Vesicare] 10 mg PO DAILY 03/30/19 [History] Atorvastatin [Lipitor] 40 mg PO QAM 03/31/19 [History] Clopidogrel [Plavix] 75 mg PO DAILY 03/31/19 [History] Losartan/Hydrochlorothiazide [Losartan-Hctz 50-12.5 mg Tab] 1 tab PO DAILY 03/31/19 [History] Metoprolol Succinate [Toprol Xl] 25 mg PO DAILY 03/31/19 [History] Nitroglycerin [Nitrostat] 0.4 mg SL Q5MIN PRN MDD X3 DOSES CALL 911 03/31/19 [History] Metoprolol XL (24 HR) Succ [Toprol Xl] 12.5 mg PO DAILY #30 tab.er.24h 04/01/19 [Rx] Ranolazine [Ranexa] 500 mg PO BID #60 tab.er.12h 04/01/19 [Rx] Allergy/AdvReac Type Severity Reaction Status Date / Time Sulfa (Sulfonamide AdvReac Severe severe Verified 03/31/19 13:02 Antibiotics) vomiting ivp dye Allergy Rash Uncoded 03/31/19 13:02 All Systems Review: The remainder of the systems were reviewed and are negative - Cardiovascular Cardiovascular: as per HPI Physical Examination Vital Signs, Last 4 Hours Temp Pulse Resp BP Pulse Ox 04/01/19 12:14 97.8 F 64 18 113/73 93 General: Conversant, Other (drowsy) HEENT: Atraumatic, Normocephaly Cardiac: Reg Rate and Rhythm, Normal S1 and S2 Lungs: Normal Breath Sounds Neuro: Alert and responsive Abdomen: Soft Skin: No rashes noted on visualized skin Musculoskeletal: No Chest Wall Tenderness Extremities: No Edema, Normal Pulses Results 04/01/19 05:01 04/01/19 05:01 Lab Results 04/01/19 04/01/19 05:01 05:01 WBC 6.6 Hgb 12.8 Hct 38.7 Plt Count 207 Sodium 140 Potassium 3.5 Chloride 108 H Carbon Dioxide 22 L BUN 27 H Creatinine 0.88 Glucose 100 Calcium 9.2 Active Medications Acetaminophen (Tylenol) 650 mg PO Q6HR PRN PRN Reason: Mild Pain/Fever Stop: 09/30/19 00:34 Last Admin: 03/31/19 18:45 Dose: 650 mg Documented by: Aspirin (Aspirin) 81 mg PO QAM [facility] Stop: 09/30/19 09:01 Last Admin: 04/01/19 08:44 Dose: 81 mg Documented by: Atorvastatin Calcium (Lipitor) 40 mg PO QAM [facility] Stop: 09/30/19 09:01 Last Admin: 04/01/19 08:44 Dose: 40 mg Documented by: Clopidogrel Bisulfate (Plavix) 75 mg PO DAILY [facility] Stop: 09/30/19 09:01 Last Admin: 04/01/19 08:44 Dose: 75 mg Documented by: Heparin Sodium (Porcine) (Heparin) 5,000 unit SQ Q8HCO [facility] Stop: 09/30/19 06:01 Last Admin: 04/01/19 13:25 Dose: Not Given Documented by: Metoprolol Succinate (Toprol Xl) 12.5 mg PO DAILY [facility] Stop: 09/30/19 12:46 Last Admin: 04/01/19 08:44 Dose: 12.5 mg Documented by: Naloxone HCl (Narcan) 0.4 mg IVP Q2MPRN PRN PRN Reason: SEE COMMENTS Stop: 09/29/19 23:04 Nitroglycerin (Nitroglycerin) 0.4 mg SL Q5MPRN PRN PRN Reason: Chest Pain Stop: 09/29/19 23:07 Oxybutynin Chloride (Ditropan) 5 mg PO TID [facility] Stop: 09/30/19 09:01 Pantoprazole Sodium (Protonix) 40 mg IVP DAILY [facility] Stop: 09/30/19 00:46 Last Admin: 04/01/19 08:44 Dose: 40 mg Documented by: Promethazine HCl (Phenergan) 12.5 mg IVP Q6H PRN PRN Reason: Nausea And Vomiting Stop: 09/30/19 00:35 Last Admin: 04/01/19 13:18 Dose: 12.5 mg Documented by: Ranolazine (Ranexa) 500 mg PO BID [facility] Stop: 10/01/19 21:01 Tramadol HCl (Ultram) 50 mg PO Q6HR PRN PRN Reason: Moderate Pain Stop: 09/30/19 00:35 Last Admin: 04/01/19 03:38 Dose: 50 mg Documented by: - Imaging and Cardiology Stress Test: report reviewed Echo: report reviewed Cardiac cath: report reviewed Other Results: 12 hour tele: avg HR=68 SR. - EKG Interpretation EKG results cardiology: personally reviewed Consult Discharge Plan - Plan Referrals: Darrel Avilez DO [Primary Care Provider] - 04/12/19 9:30 am () Jeffry Keith MD [Partnered Physician] - (Appointment has been requested. ) Prescriptions: Ranolazine [Ranexa] 500 mg PO BID #60 tab.er.12h Metoprolol XL (24 HR) Succ [Toprol Xl] 12.5 mg PO DAILY #30 tab.er.24h <Lilli Hobbs - Last Filed: 04/01/19 16:08> Date of Encounter: 04/01/19 - Attending Attestation I examined this patient and my medical decision-making was reviewed with the Resident Physician. I agree with the documented findings, disposition and treatment plan as described. Ms. Velazquez presents with atypical chest pain. Troponin negative. No new ECG changes. Recent stress test 10/2018 normal. TTE this admit demonstrates preserved LV systolic function. Patient's symptoms resolved. Recommend addition of Ranexa. Follow up as outpatient. Assessment and Plan Discussion w patient/family: The assessment and plan as outlined above was discussed with the patient and/or family members who expressed understanding and agreement. All questions were answered. Thank you for involving us in the care of your patient. Please call with any questions. History of Present Illness History of present illness: Ms. Velazquez is a 73 year old female All Systems Review: The remainder of the systems were reviewed and are negative Physical Examination Vital Signs, Last 4 Hours Temp Pulse Resp BP Pulse Ox 04/01/19 15:01 97.8 F 70 18 125/66 94 04/01/19 12:14 97.8 F 64 18 113/73 93 Results 04/01/19 05:01 04/01/19 05:01 Lab Results 04/01/19 04/01/19 05:01 05:01 WBC 6.6 Hgb 12.8 Hct 38.7 Plt Count 207 Sodium 140 Potassium 3.5 Chloride 108 H Carbon Dioxide 22 L BUN 27 H Creatinine 0.88 Glucose 100 Calcium 9.2
[2019-04-01] MEDS ORDERED: Ibuprofen 400 MG TABLET PO PRN (14:44)
--- NOTE | 2019-04-01 15:00 | Discharge Summary ---
- NOTES TO OUTPATIENT PROVIDER Notes to Outpatient Provider: Presented with chest pain seen by cardiology placed on Ranexa follow-up with cardiology as outpatient Orders not resulted at time of discharge: Pending orders 03/31/19 08:11 NM art perf SPECT single [NM] Routine 04/02/19 04:00 Basic Metabolic Panel AM 0400 Complete Blood Count w/o Diff [HEME] AM 0400 Date of Encounter: 04/01/19 Time of Encounter: 14:58 - Discharge Diagnosis (1) Chest pain Priority: Primary Status: Acute Qualifiers: Chest pain type: other chest pain Qualified Code(s): R07.89 - Other chest pain; R07.8 - Other chest pain (2) GERD (gastroesophageal reflux disease) Priority: Secondary Status: Chronic Qualifiers: Esophagitis presence: esophagitis presence not specified Qualified Code(s): K21.9 - Gastro-esophageal reflux disease without esophagitis (3) Overactive bladder Priority: Secondary Status: Chronic (4) HLD (hyperlipidemia) Priority: Secondary Status: Chronic Qualifiers: Hyperlipidemia type: pure hypercholesterolemia Qualified Code(s): E78.00 - Pure hypercholesterolemia, unspecified; E78.0 - Pure hypercholesterolemia (5) HTN (hypertension) Priority: Secondary Status: Chronic Qualifiers: Hypertension type: essential hypertension Qualified Code(s): I10 - Essenti al (primary) hypertension (6) Previous myocardial infarction older than 8 weeks Priority: Secondary Status: Resolved (7) Nausea Priority: Secondary Status: Acute (8) CAD (coronary artery disease) Priority: Secondary Status: Chronic Qualifiers: Coronary Disease-Associated Artery/Lesion type: [place] artery [place] vs. transplanted heart: [place] heart Associated angina: angina presence unspecified Qualified Code(s): I25.10 - Atherosclerotic heart disease of [place] coronary artery without angina pectoris Hospital course: Ms. Velazquez is a 73 year old female past medical history of myocardial infarction 2015 with stent placement 2 skin cancer GERD, glaucoma hyperlipidemia hypertension overactive bladder presented to ER with complaints of chest pain that began after she was cutting her grass. She became overheated she took a shower and then began to experience chest pressure radiating across chest or back and left jaw left arm which lasted approximately 20 minutes she did take 2 nitroglycerin which did relieve her pain. She did have nausea and vomited. Troponins were negative [address]-T wave abnormalities echo with EF of 65-70% normal LV chamber she did have a stress test in October 2018 which was negative for any ischemia or infarct she was seen by cardiology recommended placing on Ranexa and following up with Dr. Keith as an outpatient. Currently patient is chest pain-free at this time she does have a headache however she did receive some Imdur, he is ready for discharge at this time. - Time Spent with Patient Total time spent providing and/or coordinating discharge services: - Discharge Medications Prescriptions: New Ranolazine [Ranexa] 500 mg PO BID #60 tab.er.12h Metoprolol XL (24 HR) Succ [Toprol Xl] 12.5 mg PO DAILY #30 tab.er.24h Continued Aspirin 81 mg PO QAM Solifenacin Succinate [Vesicare] 10 mg PO DAILY Atorvastatin [Lipitor] 40 mg PO QAM Clopidogrel [Plavix] 75 mg PO DAILY Losartan/Hydrochlorothiazide [Losartan-Hctz 50-12.5 mg Tab] 1 tab PO DAILY Nitroglycerin [Nitrostat] 0.4 mg SL Q5MIN PRN MDD X3 DOSES CALL 911 PRN Reason: Chest Pain No Action Metoprolol Succinate [Toprol Xl] 25 mg PO DAILY Home Medications: Aspirin 81 mg PO QAM 07/12/15 [History] Solifenacin Succinate [Vesicare] 10 mg PO DAILY 03/30/19 [History] Atorvastatin [Lipitor] 40 mg PO QAM 03/31/19 [History] Clopidogrel [Plavix] 75 mg PO DAILY 03/31/19 [History] Losartan/Hydrochlorothiazide [Losartan-Hctz 50-12.5 mg Tab] 1 tab PO DAILY 03/31/19 [History] Metoprolol Succinate [Toprol Xl] 25 mg PO DAILY 03/31/19 [History] Nitroglycerin [Nitrostat] 0.4 mg SL Q5MIN PRN MDD X3 DOSES CALL 911 03/31/19 [History] Metoprolol XL (24 HR) Succ [Toprol Xl] 12.5 mg PO DAILY #30 tab.er.24h 04/01/19 [Rx] Ranolazine [Ranexa] 500 mg PO BID #60 tab.er.12h 04/01/19 [Rx] Allergies/Adverse Reactions: Allergy/AdvReac Type Severity Reaction Status Date / Time Sulfa (Sulfonamide AdvReac Severe severe Verified 03/31/19 13:02 Antibiotics) vomiting ivp dye Allergy Rash Uncoded 03/31/19 13:02 Date of admission: 03/30/19 22:14 Primary care physician: Ganesh Avilez DO Consults: 04/01/19 08:45 Consult to Cardiology [CONS] Routine Comment: Consulting Provider: Cardiology Mari Reason for Consult: cp hx of stent Time Notified: 08:46 Call Completed: Yes Discharging clinician: Sandra Shaw Anticipated date of discharge: 04/01/19 - Constitutional Vitals: Temp Pulse Resp BP Pulse Ox 97.8 F 64 18 113/73 93 04/01/19 12:14 04/01/19 12:14 04/01/19 12:14 04/01/19 12:14 04/01/19 12:14 General appearance: Present: cooperative, A&O X 3, pleasant, no acute distress, obese, answers questions appropriately Exam: Skin: Free of rash and discoloration. Eyes: Sclera is white. There is no discharge from eyes. ENMT: Oral/pharyngeal mucosa is normal in appearance. There is no discharge from nose or ears. Respiratory: Normal breath sounds with no crackles and wheezes bilaterally. CV: Heart is regular with no gallop or murmur. GI: Abdomen is flat and soft with no palpable mass or visceromegaly. : There is no tenderness in patient's flanks bilaterally. Neuro exam: He has good strength in upper and lower extremities. He has normal eye movements. Psychiatric: He has normal affect. His thought process is appropriate to the situation. - Patient Status Disposition: Home, Self-Care Condition: Good Functional capacity at discharge: independent ambulation - Discharge Instructions Follow Up With: Darrel Avilez DO [Primary Care Provider] - 04/12/19 9:30 am () Jeffry Keith MD [Partnered Physician] - (Appointment has been requested. ) - Diet and Activity Activity: increase activity as tolerated Diet: advance to your usual diet
[2019-04-01 15:02] VITALS: BP 125/66
--- NOTE | 2019-04-01 17:44 | Electrocardiograph Report ---
[address] [address] Test Date: 2019-04-01 Pat Name: Tamra Velazquez Department: 113 Room: 3B16 Gender: F Drilling Field Professional: : 1945 Requested By: Sandra Shaw Order Number: [id number] Reading MD: Stevie Kim Measurements Intervals [place] Rate: 70 P: 31 VT: 200 QRS: 10 QRSD: 86 T: 6 QT: 408 QTc: 428 Interpretive Statements SINUS RHYTHM Electronically Signed On 04-01-2019 17:42:55 EDT by Stevie Kim
[2019-04-01] MEDS ORDERED: Ranolazine 500 MG TAB.ER.12H PO SCH (21:00)
== END 2019-04-01 16:35 | disposition home or self-care (01) ==
LOC: EMEROOARM 20:18 → 3BNU 20:18
PROVIDERS: ADMIT Internal Medicine; ATTEND Internal Medicine

== ENCOUNTER 2021-03-02 13:48 | Observation (INO) ==
[2021-03-02] MEDS ORDERED: Morphine Sulfate 2 MG/ML SYRINGE IVP ONE (14:28)
[2021-03-02] MEDS ORDERED: Ondansetron 4 MG/2 ML VIAL IVP ONE (14:28)
[2021-03-02 15:02] LABS: Basophils % 0.3 %; Eosinophils % 0.2 %; Hematocrit 28.9 % (35.3-44.9); Immature Granulocytes % 0.7 % (0-4); Lymphocytes % 9.4 %; Mean Corpuscular HGB Conc 31.1 g/dL (31.6-35.5); Mean Corpuscular Hemoglobin 29.4 pg (28.0-33.3); Mean Corpuscular Volume 94.4 fL (83.0-100.0); Mean Platelet Volume 9.2 fL (9.4-12.4); Monocytes % 9.5 %; Neutrophils # 8.6 K/mcL (1.6-8.9); Platelet Count 353 K/mcL (140-400); Red Blood Count 3.06 M/mcL (3.82-4.97); Red Cell Distribution Width 13.9 % (11.5-14.5); Segmented Neutrophils % 79.9 %; White Blood Count 10.8 K/mcL (4.3-11.1)
[2021-03-02 15:41] LABS: BUN/Creatinine Ratio 34 (6-26); Blood Urea Nitrogen 27 mg/dL (8-23); Calcium 8.8 mg/dL (8.6-10.3); Carbon Dioxide 24 mEq/L (23-29); Chloride 101 mEq/L (98-107); Glucose 102 mg/dL (70-105); Osmolality,Calculated 279 (280-300); Potassium 3.9 mEq/L (3.5-5.1); Sodium 132 mEq/L (136-145); eGFR For African Americans > 60 (> 60); eGFR For Non-African Americans > 60 (> 60)
[2021-03-02] MEDS ORDERED: Naloxone 0.4 MG/ML INJ IVP PRN (17:25)
[2021-03-02] MEDS ORDERED: Ondansetron 4 MG/2 ML VIAL IVP PRN (17:25)
[2021-03-02] MEDS ORDERED: Nitroglycerin 0.4 MG TAB.SUBL SL PRN (17:28)
[2021-03-02] MEDS ORDERED: Morphine Sulfate 2 MG/ML SYRINGE IVP PRN ×3 (17:28→17:55)
[2021-03-02 17:42] LABS: Bacteria,Urine Few per hpf (None-Few); Bilirubin,Urine Negative (Negative); Blood,Urine Moderate (Negative); Clarity,Urine Turbid (Clear); Color,Urine Yellow (Yellow); Glucose,Urine (UA) Normal (Normal); Ketones,Urine Negative (Negative); Leukocyte Esterase,Urine Large (Negative); Mucus,Urine Moderate per lpf (None-Few); Nitrite,Urine Positive (Negative); PH,Urine 5.5 pH Units (5.0-8.0); Protein,Urine Trace mg/dL (Neg-Trace); Transitional Epi Cells,Urine Few per hpf (None-Few); Urobilinogen,Urine Normal (Normal); WBC,Urine TNTC per hpf (0-3)
[2021-03-02 18:29] LABS: Magnesium 1.8 mg/dL (1.6-2.6)
[2021-03-02] MEDS: *HR* OxyCODONE/APAP 5/325 TABLET PO PRN ×2 (18:45→22:50)
[2021-03-02] MEDS: Ranolazine 500 MG TAB.ER.12H PO SCH (22:50)
[2021-03-03 04:55] LABS: Basophils % 0.3 %; Eosinophils % 0.5 %; Hematocrit 27.2 % (35.3-44.9); Hemoglobin 8.6 g/dL (11.5-15.4); Immature Granulocytes % 0.3 % (0-4); Lymphocytes # 1.4 K/mcL (0.6-4.6); Lymphocytes % 19.3 %; Mean Corpuscular HGB Conc 31.6 g/dL (31.6-35.5); Mean Corpuscular Hemoglobin 30.4 pg (28.0-33.3); Mean Corpuscular Volume 96.1 fL (83.0-100.0); Mean Platelet Volume 9.2 fL (9.4-12.4); Monocytes # 0.9 K/mcL (0.0-1.3); Monocytes % 12.2 %; Neutrophils # 4.9 K/mcL (1.6-8.9); Platelet Count 302 K/mcL (140-400); Red Blood Count 2.83 M/mcL (3.82-4.97); Red Cell Distribution Width 13.8 % (11.5-14.5); Segmented Neutrophils % 67.4 %; White Blood Count 7.3 K/mcL (4.3-11.1)
[2021-03-03 05:12] LABS: BUN/Creatinine Ratio 27 (6-26); Blood Urea Nitrogen 20 mg/dL (8-23); Carbon Dioxide 27 mEq/L (23-29); Chloride 101 mEq/L (98-107); Glucose 93 mg/dL (70-105); Osmolality,Calculated 276 (280-300); Potassium 3.9 mEq/L (3.5-5.1); Sodium 132 mEq/L (136-145); eGFR For African Americans > 60 (> 60); eGFR For Non-African Americans > 60 (> 60)
[2021-03-03] MEDS: *HR* OxyCODONE/APAP 5/325 TABLET PO PRN ×4 (06:34→21:15)
[2021-03-03] MEDS: Ranolazine 500 MG TAB.ER.12H PO SCH ×2 (08:01→21:15)
[2021-03-03] MEDS: Aspirin 81 MG TAB.CHEW PO SCH (08:01)
[2021-03-03] MEDS: Metoprolol XL (24 HR) Succ 25 MG TAB.ER.24H PO SCH (08:01)
[2021-03-04 02:01] LABS: Basophils % 0.2 %; Eosinophils % 0.5 %; Hematocrit 25.6 % (35.3-44.9); Hemoglobin 8.1 g/dL (11.5-15.4); Immature Granulocytes % 0.4 % (0-4); Lymphocytes # 1.5 K/mcL (0.6-4.6); Lymphocytes % 18.8 %; Mean Corpuscular HGB Conc 31.6 g/dL (31.6-35.5); Mean Corpuscular Hemoglobin 29.8 pg (28.0-33.3); Mean Corpuscular Volume 94.1 fL (83.0-100.0); Mean Platelet Volume 9.6 fL (9.4-12.4); Monocytes # 0.9 K/mcL (0.0-1.3); Monocytes % 10.7 %; Neutrophils # 5.7 K/mcL (1.6-8.9); Platelet Count 280 K/mcL (140-400); Red Blood Count 2.72 M/mcL (3.82-4.97); Red Cell Distribution Width 13.5 % (11.5-14.5); Segmented Neutrophils % 69.4 %; White Blood Count 8.2 K/mcL (4.3-11.1)
[2021-03-04] MEDS: *HR* OxyCODONE/APAP 5/325 TABLET PO PRN ×3 (02:02→13:37)
[2021-03-04 02:22] LABS: BUN/Creatinine Ratio 24 (6-26); Blood Urea Nitrogen 19 mg/dL (8-23); Carbon Dioxide 26 mEq/L (23-29); Chloride 101 mEq/L (98-107); Glucose 93 mg/dL (70-105); Osmolality,Calculated 278 (280-300); Sodium 133 mEq/L (136-145); eGFR For African Americans > 60 (> 60); eGFR For Non-African Americans > 60 (> 60)
[2021-03-04] MEDS: Ranolazine 500 MG TAB.ER.12H PO SCH ×2 (08:10→21:21)
[2021-03-04] MEDS: Metoprolol XL (24 HR) Succ 25 MG TAB.ER.24H PO SCH (08:10)
[2021-03-04] MEDS: Aspirin 81 MG TAB.CHEW PO SCH (08:11)
[2021-03-05] MEDS: Piperacillin/Tazobactam 3.375 GM in 0.9 % Sodium Chloride Mini Bag 100 ML IVPB SCH ×3 (02:12→17:31)
[2021-03-05] MEDS: *HR* OxyCODONE/APAP 5/325 TABLET PO PRN ×2 (09:40→19:56)
[2021-03-05] MEDS: Metoprolol XL (24 HR) Succ 25 MG TAB.ER.24H PO SCH (09:41)
[2021-03-05] MEDS: Ranolazine 500 MG TAB.ER.12H PO SCH ×2 (09:41→19:56)
[2021-03-05] MEDS: Aspirin 81 MG TAB.CHEW PO SCH (09:42)
[2021-03-06] MEDS: *HR* OxyCODONE/APAP 5/325 TABLET PO PRN ×2 (03:08→18:00)
[2021-03-06] MEDS: Piperacillin/Tazobactam 3.375 GM in 0.9 % Sodium Chloride Mini Bag 100 ML IVPB SCH ×3 (03:08→18:11)
[2021-03-06] MEDS: Aspirin 81 MG TAB.CHEW PO SCH (07:30)
[2021-03-06] MEDS: Metoprolol XL (24 HR) Succ 25 MG TAB.ER.24H PO SCH (07:30)
[2021-03-06] MEDS: Ranolazine 500 MG TAB.ER.12H PO SCH (07:30)
[2021-03-06] MEDS ORDERED: *HR* OxyCODONE/APAP 5/325 TABLET PO ONE (07:51)
[2021-03-06 11:37] VITALS: BP 146/85
[2021-03-06 18:38] LABS: Adenovirus Not Detected (Not Detect); Coronavirus 229E Not Detected (Not Detect); Coronavirus HKU1 Not Detected (Not Detect); Coronavirus NL63 Not Detected (Not Detect); Coronavirus OC43 Not Detected (Not Detect); Human Metapneumovirus Not Detected (Not Detect); Human Rhinovirus/Enterovirus Not Detected (Not Detect); SARS-CoV-2 Not Detected (Not Detect)
[2021-03-06 18:39] LABS: Bordetella Pertussis Not Detected (Not Detect); Chlamydophila pneumoniae Not Detected (Not Detect); Influenza A Subtype 2009 H1 Not Detected (Not Detect); Influenza B Not Detected (Not Detect); Mycoplasma pneumoniae Not Detected (Not Detect); Parainfluenza Virus 1 Not Detected (Not Detect); Parainfluenza Virus 2 Not Detected (Not Detect); Parainfluenza Virus 3 Not Detected (Not Detect); Parainfluenza Virus 4 Not Detected (Not Detect); Respiratory Syncytial Virus Not Detected (Not Detect)
== END 2021-03-06 19:50 ==
LOC: EMEROOARM 13:48 → 3NENU 13:48 → SUATTDRO 17:29 → 3NENU 18:08
PROVIDERS: ADMIT Family Medicine; ATTEND Family Medicine